=== PATIENT | male | born 1980 | race Caucasian/White ===

== ENCOUNTER 2018-11-20 16:27 | Emergency (ER) | payer OTHER ==
[~2018-11-20] VITALS: Ht 172.7 cm; Wt 90.6 kg
[2018-11-20 16:46] VITALS: BP 131/87
[2018-11-20] MEDS ORDERED: LIDOCAINE-MPF 1%, 5ML ONE ×2 (16:55→18:15)
[2018-11-20] MEDS ORDERED: DIPH,PERTUSS(ACELL),TET VAC/PF 0.5 ML IM-VACC ONE ×2 (16:55→17:30)
[2018-11-20] MEDS ORDERED: LIDOCAINE-MPF 1%, 5ML INFIL ONE (17:30)
== END 2018-11-20 19:06 | disposition home or self-care (01) ==
LOC: ED 19:00
DX: S71.111A Laceration without foreign body, right thigh, initial encounter (principal); S81.011A Laceration without foreign body, right knee, initial encounter; X58.XXXA Exposure to other specified factors, initial encounter; Y93.89 Activity, other specified; Y92.098 Other place in other non-institutional residence as the place of occurrence of the external cause; Y99.8 Other external cause status
CPT/HCPCS: 12032; 90471; 90715; 99284